=== PATIENT | female | born 2000 | race Caucasian/White ===

== ENCOUNTER 2024-05-24 12:52 | Emergency (ER) | payer SELFPAY ==
[~2024-05-24] VITALS: Ht 182.9 cm; Wt 68.2 kg
[2024-05-24 13:03] VITALS: TEMP 98.4
[2024-05-24] MEDS ORDERED: Acetaminophen 325 MG TAB PO ONE (13:45)
[2024-05-24] MEDS ORDERED: Ibuprofen 400 MG TAB PO ONE (13:45)
[2024-05-24 15:28] VITALS: BP 104/65; PULSE 78
== END 2024-05-24 15:32 | disposition home or self-care (01) ==
LOC: COL.ER 12:52
DX: S06.0X0A Concussion without loss of consciousness, initial encounter (principal); S13.9XXA Sprain of joints and ligaments of unspecified parts of neck, initial encounter; W20.8XXA Other cause of strike by thrown, projected or falling object, initial encounter; Y92.89 Other specified places as the place of occurrence of the external cause; Y99.0 Civilian activity done for income or pay